=== PATIENT | female | born 1950 | race Caucasian/White ===

== ENCOUNTER 2021-06-13 01:26 | Outpatient (CLI) | payer MEDICARE, SELFPAY ==
[2021-06-13 12:52] LABS: Source Nasal/Nares
[2021-06-13 15:52] LABS: COVID-19 PCR Negative (Negative)
== END 2021-06-13 01:27 | disposition home or self-care (01) ==
LOC: LBO 01:26
PROVIDERS: PCP Internal Medicine; Visit Provider Ophthalmology
DX: Z20.822 Contact with and (suspected) exposure to COVID-19 (principal); Z01.818 Encounter for other preprocedural examination
CPT/HCPCS: 87635

== ENCOUNTER 2021-06-16 09:16 | Day surgery (SDC) | payer MEDICARE, SELFPAY ==
[2021-06-16 09:51] VITALS: BP 109/57; PULSE 67; RESP 15; TEMP 36.1; O2SAT 97
[2021-06-16] MEDS: Tropicam./Phenyleph. (1/2.5%) 5 ML BTL OD ×3 (10:15→10:25)
--- NOTE | 2021-06-16 10:31 | ANES.PREOP_ITS ---
General Info Date of Service Date Performed: 06/16/21 Height: 5 ft 2 in Weight: 70 kg Body Mass Index (BMI): 28.2 Surgical Procedure: Operation Date: 06/16/21 12:40 Proposed Procedures Side Surgeon p Cataract Extraction with IOL Implant Right Arben Agudelo MD Meds Allergies and Home Medications Allergies Allergy/AdvReac Type Severity Reaction Status Date / Time No Known Allergies Allergy Unverified 06/16/21 09:37 Home Medication Medication Instructions Recorded aspirin 81 mg PO DAILY 06/13/21 duloxetine 60 mg PO DAILY 06/13/21 fluticasone propionate 2 spray INTRANASAL DAILY 06/13/21 gabapentin 600 mg PO BID 06/13/21 guaifenesin [Mucinex] 600 mg PO DAILY 06/13/21 ipratropium-albuterol [DuoNeb] 3 ml INHALATION Q6H PRN 06/13/21 omeprazole 40 mg PO DAILY 06/13/21 simvastatin 20 mg PO DAILY 06/13/21 umeclidinium-vilanterol [Anoro 1 ea INHALATION DAILY 06/13/21 Ellipta] Current Visit Medications: Current Medications Generic Name Dose Route Start Last Admin Trade Name Freq PRN Reason Stop Dose Admin Acetaminophen 1,000 mg 06/16/21 06:00 Acetaminophen 500 Mg Tab PO Q4H PRN PRN Miscellaneous Medication 0 ml 06/16/21 06:00 Prednisolone 1%, Moxifloxacin 0.5%, Nepafenac 0.1% 5ml Btl OD DIRECTED [facility] Miscellaneous Medication 0 ml 06/16/21 06:00 06/16/21 10:25 Tropicam./Phenyleph. (1/2.5%) 5 Ml Btl OD 1 drp DIRECTED EMMANUEL Administration Tetracaine HCl 0 ml 06/16/21 06:00 Tetracaine 0.5% 4 Ml Btl OD DIRECTED [facility] PFSH Active Problems Active Problems: Problem Status Onset Code Nuclear sclerotic cataract of right eye H25.11 Cortical cataract of right eye H26.9 Posterior subcapsular age-related cataract, right eye H25.041 Medical History Medical History (Updated 06/16/21 @ 09:36 by Renny Ayoub) Deficiency of other specified B group vitamins Diabetes Emphysema, unspecified Fibromyalgia GERD (gastroesophageal reflux disease) Hereditary and idiopathic neuropathy History of CVA (cerebrovascular accident) Major depressive disorder Mixed hyperlipidemia Surgical History Surgical History (Updated 06/16/21 @ 09:36 by Renny Ayoub) H/O tubal ligation Tobacco Smoking/Tobacco Use Status: Former Tobacco Use Alcohol Alcohol Intake: never Substance Use Substance use: Never Substance use type: does not use Vital Signs and Lab Results Vital Signs Most Recent Vital Signs in EMR: Most Recent Vital Signs Temp Pulse Resp BP Pulse Ox 36.1 C L 67 15 109/57 L 97 06/16/21 09:51 06/16/21 09:51 06/16/21 09:51 06/16/21 09:51 06/16/21 09:51 Lab Results Blood Type / Crossmatch: No Data to Display Complete Blood Count: No Data to Display Complete Metabolic Panel: No Data to Display Liver Function Panel: No Data to Display Coagulation Panel: No Data to Display Cardiac Panel: No Data to Display Arterial Blood Gas: No Data to Display Venous Blood Gas: No Data to Display Pancreas Panel: No Data to Display Thyroid Panel: No Data to Display Infectious Disease: Coronavirus (COVID-19)(PCR) Negative (Negative) 06/13/21 10:10 06/13/21 Coronavirus 2019 Source Nasal/Nares 06/13/21 10:10 06/13/21 Blood Cultures: No Data to Display Toxicology Panel: No Data to Display Anesthesia Assessment and Plan Anesthesia History Personal History: No History of Anesthesia Complications Family History: No Family History of Anesthesia Complications Exercise Tolerance Exercise Tolerance: Metabolic Equivalents>4 Pertinent Negatives Pertinent Negatives: No Symptoms of GERD (Controlled with meds) and Other (Stroke 5 years ago. Difficulty with word finding and forgetfulness ) Cardiac & Pulmonary Exam Cardiac Exam: Normal S1/S2 Heart Sounds Pulmonary Exam: Clear Bilateral Breath Sounds Airway Exam Known Difficult Airway: No Mallampati Class: 3 Mouth Opening: Normal (> 3cm) Thyromental Distance: Greater than 3 cm Neck Range of Motion: Full ROM Neck Circumference: Normal Teeth Condition: Edentulous ASA Classification ASA Score: ASA 2 Emergency Case?: No NPO Status NPO Status: NPO Clears >2 hours, Solids >8 hours Anesthesia Plan Resuscitation Status: Full Code Anesthesia Technique: MAC Anesthesia Airway Planned: Natural Airway Monitors Used: Standard Monitors
[2021-06-16 10:41] VITALS: BMI 28.2
[2021-06-16] MEDS: Tetracaine 0.5% 4 ML BTL OD (10:55)
[2021-06-16] MEDS: Lidocaine 2% Jelly 6 ML SYR (10:56)
[2021-06-16] MEDS: Povidone-Iodine Ophth 30 ML BTL (10:57)
[2021-06-16] MEDS: Balanced Salt Soln.-PLUS 500 ML BAG (11:05)
[2021-06-16] MEDS: Lidocaine 1% Pres-Free 5 ML VIAL (11:05)
[2021-06-16] MEDS: Duovisc Viscoelastic System EACH 1 EACH (11:06)
[2021-06-16 11:17] VITALS: BP 97/59; PULSE 75; RESP 16; TEMP 36.1; O2SAT 92
--- NOTE | 2021-06-16 11:18 | PDOC.DSDIS_ITS ---
Discharge Plan Disposition Patient Disposition: HOME Condition: Good Discharge Details Attending Provider: Arben Agudelo Primary Care Provider: Jed Dumas [place] Meds and New Rx's Prescriptions: No Action gabapentin 600 mg Tablet 600 mg PO BID RF: 0 ipratropium-albuterol [DuoNeb] 0.5 mg-3 mg(2.5 mg base)/3 mL Solution For Nebulization 3 ml INHALATION Q6H PRNRF: 0 omeprazole 40 mg Capsule,Delayed Release(Dr/Ec) 40 mg PO DAILY RF: 0 aspirin 81 mg Capsule,Delayed Release(Dr/Ec) 81 mg PO DAILY RF: 0 simvastatin 20 mg Tablet 20 mg PO DAILY RF: 0 fluticasone propionate 50 mcg/actuation [place],Suspension 2 spray INTRANASAL DAILY RF: 0 duloxetine 60 mg Capsule,Delayed Release(Dr/Ec) 60 mg PO DAILY RF: 0 Anoro Ellipta 62.5-25 mcg/actuation Blister With Device 1 ea INHALATION DAILY RF: 0 guaifenesin [Mucinex] 600 mg Tablet Extended Release 12hr 600 mg PO DAILY RF: 0 Discharge Instructions Stand Alone Forms: Post-op Topical Cataract, Fredrick Horner ([facility]U) Discharge Orders Discharge Orders: Discharge Order (Routine); Ordered 06/16/21 Ordered By: Arben Agudelo DS: Diagnosis Discharge Diagnosis (1) Nuclear sclerotic cataract of right eye: Status: Resolved (2) Cortical cataract of right eye: Status: Resolved (3) Posterior subcapsular age-related cataract, right eye: Status: Resolved
--- NOTE | 2021-06-16 11:19 | ROE_ITS ---
Date of service: 06/16/21 Time of Service: 11:19 Operative Note Operative Note DATE OF PROCEDURE: 06/16/21 PRE-OP DIAGNOSIS: Nuclear/cortical/posterior subcapsular cataract, right eye POST-OP DIAGNOSIS: same PROCEDURE: Cataract extraction using phacoemulsification with intraocular lens implant, right eye SURGEON: Arben Agudelo ANESTHESIA TYPE: Local By Surgeon and MAC Refer to Anesthesia Record ESTIMATED BLOOD LOSS: 0 PATHOLOGY: none sent COMPLICATIONS: None Patient was transported to: same day Patient's condition: stable Implants: Jame & Jame/ALIYA Tecnis [id number] Indications: Progressive visual loss due to cataract, right eye Procedure Description: CATARACT SURGERY OPERATIVE REPORT PREOPERATIVE DIAGNOSIS: 1. Nuclear/cortical/posterior subcapsular cataract, right eye POSTOPERATIVE DIAGNOSIS: Same OPERATION: 1. Cataract extraction using phacoemulsification with posterior chamber intraocular lens implant, right eye. IOL: IOL Plywood Layup Line Core Layer/Model: Jame & Jame / ALIYA Tecnis [id number] IOL Power: + 16.5 diopters IOL Serial Number: [id number] Optic Diameter: 6.0mm Haptic/Overall Diameter: 13.0mm PHACO INFO: Killian RocketBuxurion Vision System with OZil and Active Fluidics Cumulative Dispersed Energy (CDE): 10.55 seconds SURGEON: Arben Agudelo MD, SYLVIA ANESTHESIA: Monitored Anesthesia Care (MAC), with local sub-tenon's anesthetic infiltration COMPLICATIONS: None SPECIMENS: None INDICATIONS FOR PROCEDURE: The patient is a 71-year-old lady with history of diminished visual acuity in her right eye secondary to the development of nuclear/cortical/posterior subcapsular cataract. The option of cataract surgery was offered to the patient and she felt she was symptomatic enough that she wished to proceed. PROCEDURE: The correct surgical eye was identified and marked as the right eye and the pupil was dilated in the preoperative area using mydriatics and cycloplegics. The dilated pupil size was 7.0 mm. Oral sedation was administered in the form of an Imprimis MKO Melt (midazolam 3mg/ketamine 25mg/ondansetron 2mg). The patient was brought to the operating room where cardiopulmonary monitoring was instituted and surgical time-out was performed, confirming the correct operative eye and IOL power. Topical anesthesia was administered and ophthalmic povidone-iodine 5% was instilled into the conjunctival fornices. Lidocaine gel was applied to the cornea and the jd-ocular area was prepped with Betadine 10% solution and draped in the usual sterile fashion for intraocular surgery, including an aperture drape. A Tegaderm transparent film dressing was cut in half and used to cover the lashes and lid margins. Care was taken to sequester the lashes and lid margins under the Tegaderm dressing. A lid speculum was placed between the lids of the operative eye and the Johann-Hiram operating microscope was maneuvered into position. Richard scissors were then used to make a conjunctival buttonhole approximately 6mm posterior to the limbus in the inferonasal quadrant. Blunt dissection was carried out to expose bare sclera, and a blunt-tipped sub-tenon?s anesthesia cannula was introduced and passed posteriorly along the globe where non- preserved plain lidocaine was injected into posterior sub-Tenon?s space. A sideport knife was used to make a paracentesis port inferotemporally. Intraocular phenylephrine/lidocaine was injected into the anterior chamber. The anterior chamber was filled with viscoelastic. A 2.4mm keratome knife was used to create a half-thickness groove at the limbus and then to construct a three- plane near-clear corneal tunnel extending 2.0mm into clear cornea superiortemporally. A flap was raised on the anterior capsule and capsulorhexis forceps were used to complete a continuous curvilinear capsulorhexis of 5.0 mm. Balanced salt solution was then used to perform cortical cleaving hydrodissection and nuclear hydrodelineation until the lens could be freely rotated within the capsular bag. The lens nucleus was then disassembled and removed within the capsular bag and iris plane using phacoemulsification. Residual cortical material was removed using the I/A handpiece. The posterior capsule was carefully polished to remove as much residual lens epithelial cells as safely possible. The capsular bag was then inflated and the anterior chamber deepened with viscoelastic. The lens implant described above was inserted into the capsular bag using the ALIYA [place] Injector. A Kuglen hook was used to dial the IOL into position. Residual viscoelastic was then removed first from posterior to the IOL, then from the anterior chamber using the I/A handpiece. The lens implant was noted to center nicely within the capsular bag. The incisions were stromally hydrated, and the anterior chamber was reformed using BSS. Then 0.5cc of moxifloxacin 1.0mg/ml were injected into the capsular bag and anterior chamber. The incisions were checked with a Weck spear and found to be secure. Several drops of ophthalmic povidone-iodine 5% were then applied to the eye followed by two drops of Imprimis combination prednisolone/moxifloxacin/nepafenac solution. The drapes were removed and a clear plastic protective eye shield was placed over the eye. The patient was then returned to Same Day Surgery in stable condition.
--- NOTE | 2021-06-16 11:34 | W.ANESPOSTOP ---
Postoperative Evaluation Date, Time and Location Date Performed: 06/16/21 Time Performed: 11:17 Patient Location: Day Surgery Unit Vital Signs Most Recent Imported Vital Signs: Most Recent Vital Signs Temp Pulse Resp BP Pulse Ox 36.1 C L 75 16 97/59 L 92 06/16/21 11:17 06/16/21 11:17 06/16/21 11:17 06/16/21 11:17 06/16/21 11:17 Pain Score Most Recent Pain Score: Most Recent Pain Score Pain Level 0 06/16/21 11:17 Assessment Mental Status: Awake (Alert & Oriented to Patient Baseline) Airway and Respiratory Function: Patent airway with normal (patient baseline) respiratory exam Cardiovascular Function: Hemodynamically Stable Hydration Status: Adequately Hydrated Nausea & Vomiting: No Nausea or Vomiting Pain: Pt. Denies Any Pain Peripheral Nerve Block: Patient did not receive a nerve block
[2021-06-16 11:50] VITALS: BP 126/47; PULSE 88; RESP 18; TEMP 36.2; O2SAT 95
== END 2021-06-16 11:52 | disposition home or self-care (01) ==
PROVIDERS: PCP Internal Medicine; Visit Provider Ophthalmology
PROC: (CPT 66984; principal; 2021-06-16 12:30)
DX: H25.041 Posterior subcapsular polar age-related cataract, right eye (principal); J43.9 Emphysema, unspecified; E11.9 Type 2 diabetes mellitus without complications
CPT/HCPCS: 66984; V2632

== ENCOUNTER 2021-06-27 03:11 | Outpatient (CLI) | payer MEDICARE, SELFPAY ==
[2021-06-27 14:06] LABS: Source Nasal/Nares
[2021-06-27 17:40] LABS: COVID-19 PCR Negative (Negative)
== END 2021-06-27 03:12 | disposition home or self-care (01) ==
LOC: LBO 03:11
PROVIDERS: PCP Internal Medicine; Visit Provider Ophthalmology
DX: Z20.822 Contact with and (suspected) exposure to COVID-19 (principal); Z01.818 Encounter for other preprocedural examination
CPT/HCPCS: 87635

== ENCOUNTER 2021-06-30 08:35 | Day surgery (SDC) | payer MEDICARE, SELFPAY ==
[2021-06-30] MEDS: Tropicam./Phenyleph. (1/2.5%) 5 ML BTL OS ×3 (09:35→09:49)
[2021-06-30 09:36] VITALS: BP 130/68; PULSE 62; RESP 16; TEMP 36.5; O2SAT 95
--- NOTE | 2021-06-30 10:19 | W.ANESPRE ---
General Info Date of Service Date Performed: 06/30/21 Height: 5 ft 2 in Weight: 70.2 kg Body Mass Index (BMI): 28.3 Surgical Procedure: Operation Date: 06/30/21 11:40 Proposed Procedures Side Surgeon p Cataract Extraction with IOL Implant Left Arben Agudelo MD Meds Allergies and Home Medications Allergies Allergy/AdvReac Type Severity Reaction Status Date / Time No Known Allergies Allergy Unverified 06/16/21 09:37 Home Medication Medication Instructions Recorded aspirin 81 mg PO DAILY 06/13/21 duloxetine 60 mg PO DAILY 06/13/21 fluticasone propionate 2 spray INTRANASAL DAILY 06/13/21 gabapentin 600 mg PO BID 06/13/21 guaifenesin [Mucinex] 600 mg PO DAILY 06/13/21 ipratropium-albuterol [DuoNeb] 3 ml INHALATION Q6H PRN 06/13/21 omeprazole 40 mg PO DAILY 06/13/21 simvastatin 10 mg PO DAILY 06/13/21 umeclidinium-vilanterol [Anoro 1 ea INHALATION DAILY 06/13/21 Ellipta] cholecalciferol (vitamin D3) 1 DAILY 06/30/21 [Vitamin D3] Current Visit Medications: Current Medications Generic Name Dose Route Start Last Admin Trade Name Freq PRN Reason Stop Dose Admin Acetaminophen 1,000 mg 06/30/21 06:53 Acetaminophen 500 Mg Tab PO Q4H PRN PRN Miscellaneous Medication 0 ml 06/30/21 06:53 Prednisolone 1%, Moxifloxacin 0.5%, Nepafenac 0.1% 5ml Btl OS DIRECTED EMMANUEL Miscellaneous Medication 0 ml 06/30/21 06:53 06/30/21 09:49 Tropicam./Phenyleph. (1/2.5%) 5 Ml Btl OS 1 drp DIRECTED EMMANUEL Administration Tetracaine HCl 0 ml 06/30/21 06:53 Tetracaine 0.5% 4 Ml Btl OS DIRECTED EMMANUEL PFSH Active Problems Active Problems: Problem Status Onset Code Nuclear sclerotic cataract of right eye H25.11 Cortical cataract of right eye H26.9 Posterior subcapsular age-related cataract, right eye H25.041 Medical History Medical History (Updated 06/30/21 @ 09:31 by Josi Gates) Deficiency of other specified B group vitamins Diabetes Emphysema, unspecified Fibromyalgia GERD (gastroesophageal reflux disease) Hereditary and idiopathic neuropathy pt denies History of CVA (cerebrovascular accident) Hx of cataract Major depressive disorder pt denies Mixed hyperlipidemia Surgical History Surgical History H/O tubal ligation Hx of cataract surgery Hx of colonoscopy Tobacco Smoking/Tobacco Use Status: Former Tobacco Use Alcohol Alcohol Intake: never Substance Use Substance use: Never Substance use type: does not use Vital Signs and Lab Results Vital Signs Most Recent Vital Signs in EMR: Most Recent Vital Signs Temp Pulse Resp BP Pulse Ox 36.5 C 62 16 130/68 95 06/30/21 09:36 06/30/21 09:36 06/30/21 09:36 06/30/21 09:36 06/30/21 09:36 Lab Results Blood Type / Crossmatch: No Data to Display Complete Blood Count: No Data to Display Complete Metabolic Panel: No Data to Display Liver Function Panel: No Data to Display Coagulation Panel: No Data to Display Cardiac Panel: No Data to Display Arterial Blood Gas: No Data to Display Venous Blood Gas: No Data to Display Pancreas Panel: No Data to Display Thyroid Panel: No Data to Display Infectious Disease: Coronavirus (COVID-19)(PCR) Negative (Negative) 06/27/21 10:34 06/27/21 Coronavirus 2019 Source Nasal/Nares 06/27/21 10:34 06/27/21 Blood Cultures: No Data to Display Toxicology Panel: No Data to Display Anesthesia Assessment and Plan Anesthesia History Personal History: No History of Anesthesia Complications Family History: No Family History of Anesthesia Complications Exercise Tolerance Exercise Tolerance: Metabolic Equivalents>4 Pertinent Negatives Pertinent Negatives: No Symptoms of GERD (Well controlled with medication) and No Major Pulmonary Symptoms or Complaints (Emphysema, no restrictions) Cardiac & Pulmonary Exam Cardiac Exam: Normal S1/S2 Heart Sounds Pulmonary Exam: Clear Bilateral Breath Sounds Implantable Cardiac Device Does patient have a Pacemaker or an ICD?: No Airway Exam Known Difficult Airway: No Mallampati Class: 3 Mouth Opening: Normal (> 3cm) Thyromental Distance: Greater than 3 cm Neck Range of Motion: Full ROM Neck Circumference: Normal Teeth Condition: Edentulous ASA Classification ASA Score: ASA 2 Emergency Case?: No NPO Status NPO Status: NPO Clears >2 hours, Solids >8 hours Anesthesia Plan Resuscitation Status: Full Code Anesthesia Technique: MAC Anesthesia Airway Planned: Natural Airway Monitors Used: Standard Monitors
[2021-06-30 10:22] VITALS: BMI 28.3
[2021-06-30] MEDS: Tetracaine 0.5% 4 ML BTL OS (10:31)
[2021-06-30] MEDS: Povidone-Iodine Ophth 30 ML BTL (10:32)
[2021-06-30] MEDS: Lidocaine 2% Jelly 6 ML SYR (10:32)
[2021-06-30] MEDS: Duovisc Viscoelastic System EACH 1 EACH (10:35)
[2021-06-30] MEDS: Balanced Salt Soln.-PLUS 500 ML BAG (10:35)
[2021-06-30] MEDS: Lidocaine 1% Pres-Free 5 ML VIAL (10:36)
[2021-06-30 10:59] VITALS: BP 112/62; PULSE 69; RESP 16; TEMP 36.7; O2SAT 94
--- NOTE | 2021-06-30 11:00 | W.ANESPOSTOP ---
Postoperative Evaluation Date, Time and Location Date Performed: 06/30/21 Time Performed: 11:00 Patient Location: Day Surgery Unit Vital Signs Most Recent Imported Vital Signs: Most Recent Vital Signs Temp Pulse Resp BP Pulse Ox 36.5 C 62 16 130/68 95 06/30/21 09:36 06/30/21 09:36 06/30/21 09:36 06/30/21 09:36 06/30/21 09:36 Most Recent Manually Entered Vital Signs: Adult Blood Pressure: 112/62 Heart Rate: 67 Respirations: 10 Oxygen Saturation (%): 92 Temperature (C): 36.7 C Pain Score (0-10 Scale): 0 Pain Score Most Recent Pain Score: Most Recent Pain Score Pain Level 0 06/30/21 09:36 Assessment Mental Status: Awake (Alert & Oriented to Patient Baseline) Airway and Respiratory Function: Patent airway with normal (patient baseline) respiratory exam Cardiovascular Function: Hemodynamically Stable Hydration Status: Adequately Hydrated Nausea & Vomiting: No Nausea or Vomiting Pain: Pt. Denies Any Pain Peripheral Nerve Block: Patient did not receive a nerve block
--- NOTE | 2021-06-30 11:01 | PDOC.DSDIS_ITS ---
Discharge Plan Disposition Patient Disposition: HOME Condition: Good Discharge Details Attending Provider: Arben Agudelo Primary Care Provider: Jed Dumas [facility] Meds and New Rx's Prescriptions: No Action gabapentin 600 mg Tablet 600 mg PO BID RF: 0 ipratropium-albuterol [DuoNeb] 0.5 mg-3 mg(2.5 mg base)/3 mL Solution For Nebulization 3 ml INHALATION Q6H PRNRF: 0 omeprazole 40 mg Capsule,Delayed Release(Dr/Ec) 40 mg PO DAILY RF: 0 aspirin 81 mg Capsule,Delayed Release(Dr/Ec) 81 mg PO DAILY RF: 0 simvastatin 20 mg Tablet 10 mg PO DAILY RF: 0 fluticasone propionate 50 mcg/actuation [place],Suspension 2 spray INTRANASAL DAILY RF: 0 duloxetine 60 mg Capsule,Delayed Release(Dr/Ec) 60 mg PO DAILY RF: 0 Anoro Ellipta 62.5-25 mcg/actuation Blister With Device 1 ea INHALATION DAILY RF: 0 guaifenesin [Mucinex] 600 mg Tablet Extended Release 12hr 600 mg PO DAILY RF: 0 Vitamin D3 100 mcg (4,000 unit) Capsule 1 DAILY RF: 0 Discharge Instructions Stand Alone Forms: Post-op Topical Cataract, Fredrick Horner ([facility]) Discharge Orders Discharge Orders: Discharge Order (Routine); Ordered 06/30/21 Ordered By: Arben Agudelo DS: Diagnosis Discharge Diagnosis (1) Cortical cataract of left eye: Status: Resolved (2) Nuclear sclerotic cataract of left eye: Status: Resolved (3) Posterior subcapsular age-related cataract of left eye: Status: Resolved
[2021-06-30 11:02] VITALS: BP 112/62; PULSE 67; RESP 10; TEMPC 36.7; O2SAT 92
--- NOTE | 2021-06-30 11:03 | ROE_ITS ---
Date of service: 06/30/21 Time of Service: 11:03 Operative Note Operative Note DATE OF PROCEDURE: 06/30/21 PRE-OP DIAGNOSIS: Nuclear/cortical/posterior subcapsular cataract, left eye POST-OP DIAGNOSIS: same PROCEDURE: Cataract extraction using phacoemulsification with intraocular lens implant, left eye SURGEON: Arben Agudelo ANESTHESIA TYPE: Local By Surgeon and MAC Refer to Anesthesia Record PATHOLOGY: none sent COMPLICATIONS: None Patient was transported to: same day Patient's condition: stable Implants: Jame and Jame / [employer] Tecnis [id number] Indications: Progressive decreased vision due to cataract, left eye Procedure Description: CATARACT SURGERY OPERATIVE REPORT PREOPERATIVE DIAGNOSIS: 1. Nuclear/cortical/posterior subcapsular cataract, left eye POSTOPERATIVE DIAGNOSIS: Same OPERATION: 1. Cataract extraction using phacoemulsification with posterior chamber intraocular lens implant, left eye. IOL: IOL Ordnance Mechanic/Model: Jame & Jame / ALIYA Tecnis [id number] IOL Power: + 17.5 diopters IOL Serial Number: [id number] Optic Diameter: 6.0 mm Haptic/Overall Diameter: 13.0 mm PHACO INFO: Killian Adhezion Biomedicalurion Vision System with OZil and Active Fluidics Cumulative Dispersed Energy (CDE): 14.87 seconds SURGEON: Arben Agudelo MD, SYLVIA ANESTHESIA: Monitored A [facility] (MAC), with local sub-tenon's anesthetic infiltration COMPLICATIONS: None SPECIMENS: None INDICATIONS FOR PROCEDURE: The patient is a 71-year-old lady with history of diminished visual acuity in both eyes secondary to the development of bilateral nuclear/cortical/posterior Subco cataract. The option of cataract surgery was offered to the patient and she wished to proceed. She has already undergone cataract surgery in the right eye and is doing well postoperatively. She now presents for cataract surgery in the left eye. PROCEDURE: The correct surgical eye was identified and marked as the left eye and the pupil was dilated in the preoperative area using mydriatics and cycloplegics. The dilated pupil size was 7.0 mm. Oral sedation was administered in the form of an Imprimis MKO Melt (midazolam 3mg/ketamine 25mg/ondansetron 2mg). The patient was brought to the operating room where cardiopulmonary monitoring was instituted and surgical time-out was performed, confirming the correct operative eye and IOL power. Topical anesthesia was administered and ophthalmic povidone-iodine 5% was instilled into the conjunctival fornices. Lidocaine gel was applied to the cornea and the jd-ocular area was prepped with Betadine 10% solution and draped in the usual sterile fashion for intraocular surgery, including an aperture drape. A Tegaderm transparent film dressing was cut in half and used to cover the lashes and lid margins. Care was taken to sequester the lashes and lid margins under the Tegaderm dressing. A lid speculum was placed between the lids of the operative eye and the Johann-Hiram operating microscope was maneuvered into position. Richard scissors were then used to make a conjunctival buttonhole approximately 6mm posterior to the limbus in the inferonasal quadrant. Blunt dissection was carried out to expose bare sclera, and a blunt-tipped sub-tenon?s anesthesia cannula was introduced and passed posteriorly along the globe where non- preserved plain lidocaine was injected into posterior sub-Tenon?s space. A sideport knife was used to make a paracentesis port superiorly/superiortemporally. Intraocular phenylephrine/lidocaine was injected int the anterior chamber.. The anterior chamber was filled with viscoelastic. A 2.4mm keratome knife was used to create a half-thickness groove at the limbus and then to construct a three-plane near-clear corneal tunnel extending 2.0mm into clear cornea at the 3:00 position. A flap was raised on the anterior capsule and capsulorhexis forceps were used to complete a continuous curvilinear capsulorhexis of 5.0 mm. Balanced salt solution was then used to perform cortical cleaving hydrodissection and nuclear hydrodelineation until the lens could be freely rotated within the capsular bag. The lens nucleus was then disassembled and removed within the capsular bag and iris plane using phacoemulsification. Residual cortical material was removed using the 45-degree angled silicone I/A tip with 0.3mm port. The posterior capsule was carefully polished to remove as much residual lens epithelial cells as safely possible. The capsular bag was then inflated and the anterior chamber deepened with viscoelastic. The lens implant described above was inserted into the capsular bag using the ALIYA [place] Injector. A Kuglen hook was used to dial the IOL into position. Residual viscoelastic was then removed first from posterior to the IOL, then from the anterior chamber using the I/A handpiece. The lens implant was noted to center nicely within the capsular bag. The incisions were stromally hydrated, and the anterior chamber was reformed using BSS. Then 0.5cc of moxifloxacin 1.0mg/ml were injected into the capsular bag and anterior chamber. The incisions were checked with a Weck spear and found to be secure. Several drops of ophthalmic povidone-iodine 5% were then applied to the eye followed by two drops of Imprimis combination prednisolone/moxifloxacin/nepafenac solution. The drapes were removed and a clear plastic protective eye shield was placed over the eye. The patient was then returned to Same Day Surgery in stable condition.
[2021-06-30 11:30] VITALS: BP 123/64; PULSE 69; RESP 16; TEMP 36.9; O2SAT 93
== END 2021-06-30 11:35 | disposition home or self-care (01) ==
PROVIDERS: PCP Internal Medicine; Visit Provider Ophthalmology
PROC: (CPT 66984; principal; 2021-06-30 11:30)
DX: H25.042 Posterior subcapsular polar age-related cataract, left eye (principal)
CPT/HCPCS: 66984; V2632